=== PATIENT | male | born 2000 | race Caucasian/White ===

== ENCOUNTER 2018-01-31 20:06 | Emergency (ER) | payer MEDICAID, SELFPAY ==
[~2018-01-31] VITALS: Ht 185.4 cm; Wt 66.9 kg
[2018-01-31 20:17] VITALS: BP 124/76
[2018-01-31 21:32] LABS: CULTURE INDICATED? YES; MICROSCOPIC INDICATED
== END 2018-01-31 21:58 | disposition home or self-care (01) ==
LOC: ED 21:52
DX: N50.811 Right testicular pain (principal)
CPT/HCPCS: 76870; 81001; 87086; 87491; 87591; 93975; 99285